=== PATIENT | female | born 1975 | race Caucasian/White ===

== ENCOUNTER 2016-08-14 14:06 | Emergency (ER) | payer OTHER ==
[~2016-08-14] VITALS: Ht 170.2 cm; Wt 64.0 kg
[~2016-08-14 14:06] MED LIST: AZAT50 PO; PENT500C2 PO; PRED10PA PO
[2016-08-14 14:10] VITALS: BP 104/72; PULSE 90; RESP 18; O2SAT 98
[2016-08-14 15:05] VITALS: BP 102/67
[2016-08-14] MEDS ORDERED: HUMI20KI SQ (15:07)
--- NOTE | 2016-08-14 15:11 | PD ---
HPI Chief Complaint: Chest Pain Time Seen by Provider: 15:03 Travel History International Travel<30 days: No Contact w/Intl Traveler<30days: No Traveled to known affect area: No History of Present Illness HPI This is a 41-year-old female who has a history of pulmonary embolism who presents to the emergency department having been sick for one week with some upper respiratory symptoms feeling like she had a cold. She says throughout the week she's had progressively more palpitations, feeling tight in her chest and then last night she developed chest discomfort in the center of her chest associated with feeling like her heart was racing. She denies any shortness of breath. She denies any leg swelling. She says that at the time that she was diagnosed with the pulmonary embolism she was on control pills and also had Crohn's disease and was on Humira. Her OCPs were discontinued. She completed warfarin for 6 months. Currently she is not on any anticoagulation. PFSH Past Medical History Heart Rhythm Problems: Yes (TACHYCARDIA) Cancer: No Cardiovascular Problems: Yes Chest Pain: Yes (TIGHTNESS) Diminished Hearing: No Endocrine: No Gastrointestinal Disorders: Yes (CROHN'S/HISTORY OF SBO) Genitourinary: No Immune Disorder: Yes (CROHNS) Implanted Vascular Access Dvce: No Musculoskeletal: No Neurologic: No Psychiatric: No Reproductive: No Respiratory: Yes (PE) Immunizations Current: Yes PNEUMOCCOCAL Vaccine (Year): 2 ?: Not : 0 Para: 0 Past Surgical History Abdominal Surgery: Yes (RECTAL ABCESS) Cardiac Surgery: No Ear Surgery: Yes (TUBES) Endocrine Surgery: No Eye Surgery: No Genitourinary Surgery: No Gynecologic Surgery: No Thoracic Surgery: No Tonsillectomy: No Tympanostomy Tube: Yes Other Surgery: Yes (ADENOIDS REMOVED) Social History Alcohol Use: No Tobacco Use: No Substance Use: No Allergies-Medications (Allergen,Severity, Reaction): Coded Allergies: Budesonide (Verified Allergy, Severe, ENTOCORT-HIVES, 08/14/16) Cipro (Verified Allergy, Severe, Hives, 08/14/16) Flagyl (Verified Allergy, Severe, Hives, 08/14/16) Morphine (Verified Allergy, Severe, Irritability/Anxiety, 08/14/16) MAKES HER FEEL LIKE HER CHEST IS GOING TO EXPLODE Septra (Verified Allergy, Severe, Hives, 08/14/16) Reported Meds & Prescriptions Reported Meds & Active Scripts Active Reported Humira 2-Pack Inj (Adalimumab 2-Pack Inj) 20 Mg/0.4 Ml Syr 20 Mg SQ Q14D Review of Systems Except as stated in HPI: all other systems reviewed are Neg Physical Exam Narrative GENERAL: Well-nourished, well-developed patient. SKIN: Warm and dry. HEAD: Normocephalic. EYES: No scleral icterus. No injection or drainage. NECK: Supple, trachea midline. CARDIOVASCULAR: Regular rate and rhythm without murmurs. RESPIRATORY: Breath sounds equal bilaterally. No accessory muscle use. GASTROINTESTINAL: Abdomen soft, non-tender, nondistended. MUSCULOSKELETAL: No swelling or edema of either leg. Data Data Last Documented VS Vital Signs Date Time Temp Pulse Resp B/P Pulse Ox O2 Delivery O2 Flow Rate FiO2 08/14/16 14:10 90 18 104/72 98 Orders Electrocardiogram (08/14/16 14:19) Basic Metabolic Panel (Bmp) (08/14/16 15:11) Complete Blood Count With Diff (08/14/16 15:11) Prothrombin Time / Inr (Pt) (08/14/16 15:11) Act Partial Throm Time (Ptt) (08/14/16 15:11) Troponin I (08/14/16 15:11) Ecg Monitoring (08/14/16 15:11) Bilateral Bp Monitoring (08/14/16 15:11) Iv Access Insert/Monitor (08/14/16 15:11) Oximetry (08/14/16 15:11) Oxygen Administration (08/14/16 15:11) Sodium Chloride 0.9% Flush (Ns Flush) (08/14/16 15:15) Ct Pulmonary Angiogram (08/14/16 15:11) Ed Urine Pregnancytest Poc (08/14/16 15:11) MDM Medical Decision Making Medical Screen Exam Complete: Yes Emergency Medical Condition: Yes Differential Diagnosis Pulmonary embolism, pneumonia, bronchitis Narrative Course This is a 41-year-old female who has a history of pulmonary embolism who presents to the emergency department with 1 week of increasing palpitations and chest discomfort in the setting of a likely viral URI earlier in the week. She was placed on a monitor and an IV was established. Vital signs are reassuring. Patient is high risk for PE. I think a CT pulmonary angiogram is indicated. Labs were obtained and CT is pending. Dr. Mccarty will disposition the patient. Mayda Smith MD Aug 14, 2016 15:11
[2016-08-14] MEDS ORDERED: SODIUM CHLORIDE 0.9% FLUSH 5 ML FLUSH IVF PRN (15:15)
[2016-08-14 15:32] VITALS: TEMP 98.7
[2016-08-14 15:35] LABS: AUTOMATED NEUTROPHIL # 4.6 TH/MM3 (1.8-7.7); BASOPHIL % 0.5 % (0.0-2.0); EOSINOPHIL # 0.1 TH/MM3 (0-0.4); EOSINOPHIL % 1.2 % (0.0-4.0); HEMO FLAGS DIFF FINAL; LYMPH % 28.9 % (9.0-44.0); LYMPHOCYTE # 2.2 TH/MM3 (1.0-4.8); MEAN CELL VOLUME 89.5 FL (80.0-100.0); MEAN CORPUSCULAR HEMOGLOBIN 30.9 PG (27.0-34.0); MEAN CORPUSCULAR HGB CONC 34.5 % (32.0-36.0); MONO % 8.5 % (0.0-8.0); NEUT % 60.9 % (16.0-70.0); PLATELET COUNT 185 TH/MM3 (150-450); RED BLOOD COUNT 4.92 MIL/MM3 (4.00-5.30); RED CELL DISTRIBUTION WIDTH 11.2 % (11.6-17.2); WHITE BLOOD COUNT 7.5 TH/MM3 (4.0-11.0)
[2016-08-14 15:39] VITALS: O2SAT 98
[2016-08-14 15:42] LABS: CHLORIDE 107 MEQ/L (98-107); POTASSIUM 3.3 MEQ/L (3.5-5.1); SODIUM (NA) 142 MEQ/L (136-145)
[2016-08-14 15:45] LABS: ANION GAP 7 MEQ/L (5-15); BICARBONATE 28.2 MEQ/L (21.0-32.0); BLOOD UREA NITROGEN 15 MG/DL (7-18)
[2016-08-14 15:46] LABS: PROTHROMBIN TIME - PATIENT 10.7 SEC (9.8-11.6)
[2016-08-14 15:48] LABS: GLOMERULAR FILTRATION RATE 65 ML/MIN (>89)
[2016-08-14] MEDS ORDERED: POTASSIUM CHLORIDE 20 MEQ CONTROLLED RELEASE TAB PO ONE (16:15)
[2016-08-14] MEDS ORDERED: IOHEXOL 350 MG/ML 10 ML VIAL (for RAD DIAG) IV ONE (16:36)
--- NOTE | 2016-08-14 16:48 | RADHPO ---
EXAM DATE/TIME: 08/14/2016 16:16 [facility] COMPARISON: No previous studies available for comparison. INDICATIONS : Chest pain. IV CONTRAST: 65 cc Omnipaque 350 (iohexol) IV RADIATION DOSE: 6.66 CTDIvol (mGy) MEDICAL HISTORY : Cardiovascular disease. SURGICAL HISTORY : None. ENCOUNTER: Initial ACUITY: 1 day PAIN SCALE: 5/10 LOCATION: chest TECHNIQUE: Volumetric scanning of the chest was performed using a pulmonary embolism protocol MIP images were re constructed. Using automated exposure control and adjustment of the mA and/or kV according to patien t size, radiation dose was kept as low as reasonably achievable to obtain optimal diagnostic quality images. FINDINGS: PULMONARY ARTERIES: No filling defects are seen in the pulmonary arteries through the segmental level. LUNGS: There is no consolidation or pneumothorax . No concerning pulmonary nodule is visualized. PLEURAE: There is no pleural thickening or pleural effusion. MEDIASTINUM: There is good visualization of the great vessels of the middle mediastinum. No evidence of mediastin al or hilar adenopathy/mass. MUSCULOSKELETAL: Within normal limits for patient age. MISCELLANEOUS: The visualized upper abdominal organs demonstrate no acute abnormality. CONCLUSION: Negative examination with no evidence of pulmonary embolization in no acute cardiopul monary process Juan Chase MD on August 14, 2016 at 16:44 Board Certified Radiologist. This report was verified electronically.
--- NOTE | 2016-08-14 17:03 | PD ---
Physical Exam Date Seen by Provider: Aug 14, 2016 Time Seen by Provider: 17:00 Narrative This 42-year-old female had presented with complaints of heart pounding atypical chest pain. It started when she had some cold symptoms last week. She has a history of pulmonary embolus and is concerned she might be having a recurrence. She does have Crohn's disease and is on Humira. She taken a Z-Clem for her respiratory symptoms. The CTA has been ordered and has been read as negative. Her potassium is low at 3.3 and this is been supplemented. She is stable for discharge. This may be some residual symptoms from her upper respiratory infection. Data Data Last Documented VS Vital Signs Date Time Temp Pulse Resp B/P Pulse Ox O2 Delivery O2 Flow Rate FiO2 08/14/16 15:39 98 Room Air 08/14/16 15:32 98.7 08/14/16 14:10 90 18 104/72 Orders Electrocardiogram (08/14/16 14:19) Basic Metabolic Panel (Bmp) (08/14/16 15:11) Complete Blood Count With Diff (08/14/16 15:11) Prothrombin Time / Inr (Pt) (08/14/16 15:11) Act Partial Throm Time (Ptt) (08/14/16 15:11) Troponin I (08/14/16 15:11) Ecg Monitoring (08/14/16 15:11) Bilateral Bp Monitoring (08/14/16 15:11) Iv Access Insert/Monitor (08/14/16 15:11) Oximetry (08/14/16 15:11) Oxygen Administration (08/14/16 15:11) Sodium Chloride 0.9% Flush (Ns Flush) (08/14/16 15:15) Ct Pulmonary Angiogram (08/14/16 15:11) Ed Urine Pregnancytest Poc (08/14/16 15:11) Potassium Chloride (Kcl) (08/14/16 16:15) Iohexol 350 Inj (Omnipaque 350 Inj) (08/14/16 16:36) Labs Laboratory Tests Test 08/14/16 15:23 White Blood Count 7.5 TH/MM3 Red Blood Count 4.92 MIL/MM3 Hemoglobin 15.2 GM/DL Hematocrit 44.0 % Mean Corpuscular Volume 89.5 FL Mean Corpuscular Hemoglobin 30.9 PG Mean Corpuscular Hemoglobin 34.5 % Concent Red Cell Distribution Width 11.2 % Platelet Count 185 TH/MM3 Mean Platelet Volume 6.5 FL Neutrophils (%) (Auto) 60.9 % Lymphocytes (%) (Auto) 28.9 % Monocytes (%) (Auto) 8.5 % Eosinophils (%) (Auto) 1.2 % Basophils (%) (Auto) 0.5 % Neutrophils # (Auto) 4.6 TH/MM3 Lymphocytes # (Auto) 2.2 TH/MM3 Monocytes # (Auto) 0.6 TH/MM3 Eosinophils # (Auto) 0.1 TH/MM3 Basophils # (Auto) 0.0 TH/MM3 CBC Comment DIFF FINAL Differential Comment Prothrombin Time 10.7 SEC Prothromb Time International 1.0 RATIO Ratio Activated Partial 26.0 SEC Thromboplast Time Sodium Level 142 MEQ/L Potassium Level 3.3 MEQ/L Chloride Level 107 MEQ/L Carbon Dioxide Level 28.2 MEQ/L Anion Gap 7 MEQ/L Blood Urea Nitrogen 15 MG/DL Creatinine 0.94 MG/DL Estimat Glomerular Filtration 65 ML/MIN Rate Random Glucose 77 MG/DL Calcium Level 8.4 MG/DL Troponin I LESS THAN 0.02 NG/ML [facility] Medical Record Reviewed: Yes Supervised Visit with EL: No Diagnosis Primary Impression: Upper respiratory infection Qualified Code: J06.9 - Upper respiratory tract infection, unspecified type Additional Instruction: follow up with your own medical doctor, return as needed. Disposition: 01 DISCHARGE HOME Condition: Stable Donato Correa MD Aug 14, 2016 17:03
--- NOTE | 2016-08-15 18:57 | EKG ---
Date Performed: 08/14/2016 Time Performed: 14:19:30 PTAGE: 41 years EKG: Sinus rhythm When compared to previous tracing, the patient is now Tachycardic. Normal ECG PREVIOUS TRACING : 08/14/2016 14.19.30 DOCTOR: Liza Silvestre Interpretating Date/Time 08/15/2016 18:56:50
== END 2016-08-14 17:23 | disposition home or self-care (01) ==
LOC: PHED 14:06
DX: Z86.711 Personal history of pulmonary embolism (principal); K50.90 Crohn's disease, unspecified, without complications; J06.9 Acute upper respiratory infection, unspecified; R00.0 Tachycardia, unspecified
CPT/HCPCS: 71275; 80048; 84484; 84703; 85025; 85610; 85730; 93005; 99285; Q9967

== ENCOUNTER 2017-03-27 10:50 | Emergency (ER) | payer OTHER ==
[~2017-03-27] VITALS: Ht 170.2 cm; Wt 66.8 kg
[~2017-03-27 10:50] MED LIST changes: -AZAT50 PO; +HUMI20KI SQ; -PENT500C2 PO; -PRED10PA PO
[2017-03-27 11:02] VITALS: BP 103/75; PULSE 93; RESP 18; TEMP 98.7; O2SAT 96
[2017-03-27] MEDS ORDERED: AMOX875T2 PO (11:25)
[2017-03-27 11:40] VITALS: O2SAT 98
[2017-03-27] MEDS ORDERED: SODIUM CHLORIDE 0.9% FLUSH 10 ML FLUSH IVF PRN (11:45)
[2017-03-27] MEDS ORDERED: PANTOPRAZOLE SODIUM 40 MG VIAL IV PUSH ONE (11:45)
[2017-03-27 11:55] LABS: AUTOMATED NEUTROPHIL # 6.4 TH/MM3 (1.8-7.7); BASOPHIL # 0.1 TH/MM3 (0-0.2); EOSINOPHIL # 0.1 TH/MM3 (0-0.4); EOSINOPHIL % 1.5 % (0.0-4.0); HEMATOCRIT 44.9 % (35.0-46.0); LYMPH % 25.2 % (9.0-44.0); LYMPHOCYTE # 2.5 TH/MM3 (1.0-4.8); MEAN CELL VOLUME 90.7 FL (80.0-100.0); MEAN CORPUSCULAR HEMOGLOBIN 30.4 PG (27.0-34.0); MEAN CORPUSCULAR HGB CONC 33.5 % (32.0-36.0); MONO % 7.4 % (0.0-8.0); NEUT % 64.9 % (16.0-70.0); PLATELET COUNT 224 TH/MM3 (150-450); RED BLOOD COUNT 4.95 MIL/MM3 (4.00-5.30); RED CELL DISTRIBUTION WIDTH 11.8 % (11.6-17.2); WHITE BLOOD COUNT 9.8 TH/MM3 (4.0-11.0)
[2017-03-27 11:57] LABS: HEMO FLAGS DIFF FINAL
[2017-03-27 12:04] LABS: CHLORIDE 105 MEQ/L (98-107); POTASSIUM 3.7 MEQ/L (3.5-5.1); SODIUM (NA) 137 MEQ/L (136-145)
[2017-03-27 12:07] LABS: ANION GAP 8 MEQ/L (5-15); BICARBONATE 24.1 MEQ/L (21.0-32.0); BLOOD UREA NITROGEN 11 MG/DL (7-18); MAGNESIUM 2.4 MG/DL (1.5-2.5)
[2017-03-27 12:10] LABS: APTT (PATIENT) 24.3 SEC (24.3-30.1); GLOMERULAR FILTRATION RATE 78 ML/MIN (>89); PROTHROMBIN TIME - PATIENT 10.5 SEC (9.8-11.6)
[2017-03-27 12:24] LABS: BHCG SCREEN QUALITATIVE LESS THAN 1 MIU/ML (0-5)
--- NOTE | 2017-03-27 12:40 | RADRPT ---
EXAM DATE/TIME: 03/27/2017 12:17 [facility] COMPARISON: No previous studies available for comparison. INDICATIONS : Cough, congestion, chest pain. MEDICAL HISTORY : None. SURGICAL HISTORY : None. ENCOUNTER: Initial ACUITY: 1 week PAIN SCORE: 3/10 LOCATION: Bilateral chest FINDINGS: The cardiac silhouette is normal in transverse diameter. The lungs are hyperinflated but clear. No ef fusions are identified. CONCLUSION: 1. Findings of COPD. No acute cardiopulmonary disease. Jonathan Artis MD on March 27, 2017 at 12:38 Board Certified Radiologist. This report was verified electronically.
--- NOTE | 2017-03-27 13:26 | PD ---
HPI Chief Complaint: Respiratory Symptoms Time Seen by Provider: 11:24 Travel History International Travel<30 days: No Contact w/Intl Traveler<30days: No Traveled to known affect area: No History of Present Illness HPI 41yo F with PMH of PE here with coughing, nasal congestion and pleuritic chest pain. States it is burning and worst with coughing. Pt states she saw her PMD last Sunday and started on augmentin for ear infection and prednisone for bronchitis. [place] better but now symptoms are back. Started with throat pain but now that is better. Denies any sob, n/v, abdominal pain, focal weakness or numbness. PFSH Past Medical History Heart Rhythm Problems: Yes (TACHYCARDIA) Cancer: No Cardiovascular Problems: Yes Chest Pain: Yes (TIGHTNESS) Diminished Hearing: No Endocrine: No Gastrointestinal Disorders: Yes (CROHN'S/HISTORY OF SBO) Genitourinary: No Immune Disorder: Yes (CROHNS) Implanted Vascular Access Dvce: No Musculoskeletal: No Neurologic: No Psychiatric: No Reproductive: No Respiratory: Yes (PE) Immunizations Current: Yes Influenza Vaccination: No PNEUMOCCOCAL Vaccine (Year): 2 ?: Not : 0 Para: 0 Past Surgical History Abdominal Surgery: Yes (RECTAL ABCESS) Cardiac Surgery: No Ear Surgery: Yes (TUBES) Endocrine Surgery: No Eye Surgery: No Genitourinary Surgery: No Gynecologic Surgery: No Thoracic Surgery: No Tonsillectomy: No Tympanostomy Tube: Yes Other Surgery: Yes (ADENOIDS REMOVED) Social History Alcohol Use: No Tobacco Use: No Substance Use: No Allergies-Medications (Allergen,Severity, Reaction): Coded Allergies: budesonide (Unverified Allergy, Severe, ENTOCORT-HIVES, 03/27/17) ciprofloxacin (Unverified Allergy, Severe, Hives, 03/27/17) metronidazole (Unverified Allergy, Severe, Hives, 03/27/17) morphine (Unverified Allergy, Severe, Irritability/Anxiety, 03/27/17) MAKES HER FEEL LIKE HER CHEST IS GOING TO EXPLODE sulfamethoxazole (Unverified Allergy, Severe, Hives, 03/27/17) trimethoprim (Unverified Allergy, Severe, Hives, 03/27/17) Reported Meds & Prescriptions Reported Meds & Active Scripts Active Reported Amoxicillin-Clavulanate 875-125 mg Tab 875 Mg PO BID not for use in CrCl <30 mL/minute Humira 2-Pack Inj (Adalimumab 2-Pack Inj) 20 Mg/0.4 Ml Syr 20 Mg SQ Q14D Review of Systems Except as stated in HPI: all other systems reviewed are Neg Physical Exam Narrative GENERAL: 41yo F not in distress. SKIN: Focused skin assessment warm/dry. HEAD: Atraumatic. Normocephalic. EYES: Pupils equal and round. No scleral icterus. No injection or drainage. ENT: No nasal bleeding or discharge. Mucous membranes pink and moist. Throat: Clear. NECK: Trachea midline. No JVD. CARDIOVASCULAR: Regular rate and rhythm. No murmur appreciated. RESPIRATORY: No accessory muscle use. Clear to auscultation. Breath sounds equal bilaterally. GASTROINTESTINAL: Abdomen soft, non-tender, nondistended. No rebound tenderness. MUSCULOSKELETAL: No obvious deformities. No clubbing. No cyanosis. No edema. NEUROLOGICAL: Awake and alert. No obvious cranial nerve deficits. Motor grossly within normal limits. Normal speech. PSYCHIATRIC: Appropriate mood and affect; insight and judgment normal. Data Data Last Documented VS Vital Signs Date Time Temp Pulse Resp B/P (MAP) Pulse Ox O2 Delivery O2 Flow Rate FiO2 03/27/17 11:40 98 Room Air 03/27/17 11:22 98 03/27/17 11:02 98.7 18 103/75 (84) Orders Orders Electrocardiogram (03/27/17 11:37) Basic Metabolic Panel (Bmp) (03/27/17 11:37) Complete Blood Count With Diff (03/27/17 11:37) D-Dimer (03/27/17 11:37) Magnesium (Mg) (03/27/17 11:37) Prothrombin Time / Inr (Pt) (03/27/17 11:37) Act Partial Throm Time (Ptt) (03/27/17 11:37) Troponin I (03/27/17 11:37) Chest, Single Ap (03/27/17 11:37) Ecg Monitoring (03/27/17 11:37) Iv Access Insert/Monitor (03/27/17 11:37) Oximetry (03/27/17 11:37) Sodium Chloride 0.9% Flush (Ns Flush) (03/27/17 11:45) Bhcg Screen Qualitative (03/27/17 11:37) Pantoprazole Inj (Protonix Inj) (03/27/17 11:45) Guaifen-Dm 200-20 Mg/10 Ml Liq (Robituss (03/27/17 13:30) Pseudoephedrine (Sudafed) (03/27/17 13:30) Labs Laboratory Tests Test 03/27/17 11:50 White Blood Count 9.8 TH/MM3 Red Blood Count 4.95 MIL/MM3 Hemoglobin 15.1 GM/DL Hematocrit 44.9 % Mean Corpuscular Volume 90.7 FL Mean Corpuscular Hemoglobin 30.4 PG Mean Corpuscular Hemoglobin Concent 33.5 % Red Cell Distribution Width 11.8 % Platelet Count 224 TH/MM3 Mean Platelet Volume 6.1 FL Neutrophils (%) (Auto) 64.9 % Lymphocytes (%) (Auto) 25.2 % Monocytes (%) (Auto) 7.4 % Eosinophils (%) (Auto) 1.5 % Basophils (%) (Auto) 1.0 % Neutrophils # (Auto) 6.4 TH/MM3 Lymphocytes # (Auto) 2.5 TH/MM3 Monocytes # (Auto) 0.7 TH/MM3 Eosinophils # (Auto) 0.1 TH/MM3 Basophils # (Auto) 0.1 TH/MM3 CBC Comment DIFF FINAL Differential Comment Prothrombin Time 10.5 SEC Prothromb Time International Ratio 1.0 RATIO Activated Partial Thromboplast Time 24.3 SEC D-Dimer Quantitative (PE/DVT) 0.29 MG/L FEU Blood Urea Nitrogen 11 MG/DL Creatinine 0.81 MG/DL Random Glucose 96 MG/DL Calcium Level 9.6 MG/DL Magnesium Level 2.4 MG/DL Sodium Level 137 MEQ/L Potassium Level 3.7 MEQ/L Chloride Level 105 MEQ/L Carbon Dioxide Level 24.1 MEQ/L Anion Gap 8 MEQ/L Estimat Glomerular Filtration Rate 78 ML/MIN Troponin I LESS THAN 0.02 NG/ML Beta HCG, Qualitative LESS THAN 1 MIU/ML MDM Medical Decision Making Medical Screen Exam Complete: Yes Emergency Medical Condition: Yes Differential Diagnosis Viral syndrome vs. URI vs. pneumonia Narrative Course 41yo F with URI symptoms. She does have history of PE so will check D-dimer since she is not hypoxic or tachycardic and I have a low suspicion for PE. Labs reviewed, no leukocytosis. BMP unremarkable. Troponin negative. Do not think it is cardiac. Pt given protonix with improvement of burning in chest. negative. D-dimer negative. CXR showed findings of COPD. No acute cardiopulmonary disease. Pt is not wheezing and denies smoking cig. Pt given robitussin and sudafed. Return precautions given. Diagnosis Primary Impression: Upper respiratory infection Qualified Codes: J06.9 - Acute upper respiratory infection, unspecified Patient Instructions: General Instructions Departure Forms: Tests/Procedures Additional Instructions: Please follow up with your primary care physician. Return to the ED if symptoms worsen. Med/Other Pt SpecificInfo: Prescription(s) given Scripts Pseudoephedrine HCl (Sudafed 12 Hour) 120 Mg Tablet.er 1 TAB PO Q12HR for 5 Days Prov: Macie Cox DO 03/27/17 Dextromethorphan (Robitussin Lingering Cold) 15 Mg Cap 30 MG PO Q8H Y for COUGH for 5 Days, CAP 0 Refills Prov: Macie Cox DO 03/27/17 Disposition: 01 DISCHARGE HOME Condition: Stable Macie Cox DO Mar 27, 2017 13:26
[2017-03-27] MEDS ORDERED: guaiFENesin/DEXTROMETHORPHAN 200 MG/20 MG/10 ML CUP PO ONE (13:30)
[2017-03-27] MEDS ORDERED: PSEUDOEPHEDRINE HCL 30 MG TAB PO ONE (13:30)
[2017-03-27 13:36] VITALS: BP 103/67; PULSE 81; RESP 16; O2SAT 99
[2017-03-27] MEDS ORDERED: ROBICAP2 PO (13:39)
[2017-03-27] MEDS ORDERED: SUDA120T6 PO (13:39)
--- NOTE | 2017-03-28 14:31 | EKG ---
Date Performed: 03/27/2017 Time Performed: 11:45:26 PTAGE: 41 years EKG: Sinus rhythm NORMAL ECG Compared to prior tracing no significant change PREVIOUS TRACING : 08/14/2016 14.19 DOCTOR: Austen George Interpretating Date/Time 03/28/2017 14:29:57
== END 2017-03-27 13:45 | disposition home or self-care (01) ==
LOC: PHED 10:50
DX: J06.9 Acute upper respiratory infection, unspecified (principal); R00.0 Tachycardia, unspecified; K50.90 Crohn's disease, unspecified, without complications; Z86.711 Personal history of pulmonary embolism
CPT/HCPCS: 71010; 80048; 83735; 84484; 84703; 85025; 85379; 85610; 85730; 93005; 96374; 99285; C9113